=== PATIENT | male | born 1955 | race Caucasian/White ===

== ENCOUNTER → 2019-12-11 | Outpatient (CLI) | payer MEDICARE ==
[~2019-12-11] MED LIST: ACET325T14 PO; MOME13HF2 INH; OMEP20TA62 PO
== END | disposition home or self-care (01) ==
LOC: STAR 10:11
PROVIDERS: ATTEND Internal Medicine Geriatric Medicine
DX: Z01.818 Encounter for other preprocedural examination (principal); Z20.828 Contact with and (suspected) exposure to other viral communicable diseases; K22.70 Barrett's esophagus without dysplasia
CPT/HCPCS: 36415; 87635; 93005

== ENCOUNTER 2019-12-16 11:48 | Day surgery (SDC) | payer MEDICARE, OTHER ==
[~2019-12-16] VITALS: Ht 167.6 cm; Wt 69.4 kg
[~2019-12-16 11:48] MED LIST changes: -ACET325T14 PO
[2019-12-16] MEDS ORDERED: ACET325T14 PO (12:03)
[2019-12-16 12:12] VITALS: BP 189/74
[2019-12-16] MEDS ORDERED: FENTANYL PF 100 MCG/2ML ONE (12:18)
[2019-12-16] MEDS ORDERED: MIDAZOLAM 1 MG/ML, 2ML ONE (12:18)
[2019-12-16] MEDS ORDERED: PROPOFOL 10 MG/ML, 20ML ONE ×2 (12:23→12:50)
[2019-12-16] MEDS ORDERED: hydrALAzine 20 MG/ML, 1ML IV PRN (12:30)
[2019-12-16] MEDS ORDERED: ACETAMINOPHEN 325 MG TABLET PO PRN (12:30)
[2019-12-16] MEDS ORDERED: CHLORHEXIDINE 15 ML UDC MM ONE (12:30)
[2019-12-16] MEDS ORDERED: OXYcodone 5 MG/5 ML ORAL.SOL UDC PO PRN (12:30)
[2019-12-16] MEDS ORDERED: LABETALOL 5MG/ML, 20ML IV PRN (12:30)
[2019-12-16] MEDS ORDERED: ONDANSETRON 2MG/ML, 2ML IVPush PRN (12:30)
[2019-12-16] MEDS ORDERED: HYDROmorphone 1 MG/ML, 1ML INJ IVPush PRN (12:30)
[2019-12-16] MEDS ORDERED: FENTANYL PF 100 MCG/2ML IV PRN (12:30)
[2019-12-16] MEDS ORDERED: LACTATED RINGERS 1,000 ML IV SCH (12:30)
[2019-12-16] MEDS ORDERED: PROMETHAZINE 25 MG/ML, 1ML IVPush PRN (12:30)
[2019-12-16] MEDS ORDERED: ACETAMINOPHEN 650 MG/20.3 ML UDC ONE (13:18)
== END 2019-12-16 14:20 | disposition home or self-care (01) ==
LOC: OUT 11:48
PROVIDERS: ATTEND Internal Medicine Geriatric Medicine
DX: K22.710 Barrett's esophagus with low grade dysplasia (principal); K21.9 Gastro-esophageal reflux disease without esophagitis; J45.909 Unspecified asthma, uncomplicated; Z79.899 Other long term (current) drug therapy
CPT/HCPCS: 43270; J2250; J2704; J3010; J7120